=== PATIENT | female | born 1985 ===

== ENCOUNTER → 2021-08-16 08:37 | Outpatient (CLI) | payer OTHER, SELFPAY ==
[2021-08-16 22:37] LABS: COVID19 - ORCAS (NP or Nasal) POSITIVE (Negative)
== END ==
PROVIDERS: PCP Physician Assistant Medical; Visit Provider Physician Assistant Medical
DX: U07.1 COVID-19 (principal); Z20.822 Contact with and (suspected) exposure to COVID-19
CPT/HCPCS: U0003